=== PATIENT | male | born 1970 | race African-American/Black ===

== ENCOUNTER 2018-07-14 11:26 | Emergency (ER) | payer OTHER ==
--- NOTE | 2018-07-14 11:55 | ER Document Report ---
ED Medical Screen (RME) - General Chief Complaint: Near Syncope Stated Complaint: BLOOD PRESSURE PROBLEM Time Seen by Provider: 07/14/18 11:52 Mode of Arrival: Wheelchair Information source: Patient Notes: 48-year-old man with a history of hypertension, cigarette smoking presents to the emergency room after episode of dizziness, diaphoresis. Patient states he awoke usual state of health and had breakfast at the hotel (he is from [place]). He states that he was at the mall and was out smoking a cigarette and then walked through the mall to a restaurant and on approaching the restaurant, he became acutely dizzy, unstable gait, diffusely diaphoretic as per the patient's . Patient denied any chest pain or shortness of breath. Patient did recently travel from [place]. He denies any calf pain. TRAVEL OUTSIDE OF THE [place] IN LAST 30 DAYS: No - Related Data Allergies/Adverse Reactions: No Known Allergies Allergy (Unverified 07/14/18 11:32) Past Medical History - Social History Frequency of alcohol use: None Drug Abuse: None - Past Medical History Cardiac Medical History: Reports: Hx Hypertension Renal/ Medical History: Denies: Hx Peritoneal Dialysis Physical Exam - Vital signs Vitals: Temp Pulse Resp BP Pulse Ox 98.4 F 52 L 18 156/81 H 98 07/14/18 11:38 07/14/18 11:38 07/14/18 11:38 07/14/18 11:38 07/14/18 11:38 Course - Vital Signs Vital signs: Temp Pulse Resp BP Pulse Ox 98.4 F 52 L 18 156/81 H 98 07/14/18 11:38 07/14/18 11:38 07/14/18 11:38 07/14/18 11:38 07/14/18 11:38
[2018-07-14 12:19] LABS: ABSOLUTE BASOPHILS # (AUTO) 0.1 10^3/uL (0.0-0.2); ABSOLUTE EOSINOPHILS # (AUTO) 0.4 10^3/uL (0.0-0.6); ABSOLUTE LYMPHOCYTES (AUTO) 4.5 10^3/uL (0.5-4.7); ABSOLUTE MONOCYTES (AUTO) 0.7 10^3/uL (0.1-1.4); ABSOLUTE NEUT (AUTO) 2.4 10^3/uL (1.7-8.2); BASOPHILS % (AUTO) 0.7 % (0-2); EOSINOPHILS % (AUTO) 4.8 % (0-6); HEMOGLOBIN 12.6 g/dL (13.5-17.0); LYMPHOCYTES % (AUTO) 56.3 % (13-45); MEAN CORPUSCULAR HEMOGLOBIN 25.4 pg (27.0-33.4); MEAN CORPUSCULAR HGB CONC 32.4 g/dL (32.0-36.0); MEAN CORPUSCULAR VOLUME 78 fl (80-97); MONOCYTES % (AUTO) 8.6 % (3-13); PLATELET COUNT 405 10^3/uL (150-450); RED BLOOD COUNT 4.98 10^6/uL (4.35-5.55); RED CELL DISTRIBUTION WIDTH 13.6 % (11.5-14.0); SEGMENTED NEUTROPHILS % (AUTO) 29.6 % (42-78); TOTAL CELLS COUNTED % (AUTO) 100 %; WHITE BLOOD COUNT 8.1 10^3/uL (4.0-10.5)
[2018-07-14 12:39] LABS: ALANINE AMINOTRANSFERASE 25 U/L (21-72); ALBUMIN 4.6 g/dL (3.5-5.0); ALKALINE PHOSPHATASE 89 U/L (38-126); ANION GAP 12 (5-19); ASPARTATE AMINO TRANSFERASE 26 U/L (17-59); BILIRUBIN,DIRECT 0.3 mg/dL (0.0-0.4); BILIRUBIN,TOTAL 0.4 mg/dL (0.2-1.3); BLOOD UREA NITROGEN 18 mg/dL (7-20); CARBON DIOXIDE 29 mmol/L (22-30); CHLORIDE 105 mmol/L (98-107); CREATINE KINASE 172 U/L (55-170); GLUCOSE 101 mg/dL (75-110); POTASSIUM 4.2 mmol/L (3.6-5.0); SODIUM 145.7 mmol/L (137-145)
--- NOTE | 2018-07-14 12:47 | RADIOLOGY REPORT (SQ) ---
EXAM DESCRIPTION: CHEST SINGLE VIEW COMPLETED DATE/TIME: 07/14/2018 12:29 pm REASON FOR STUDY: near syncope COMPARISON: None. NUMBER OF VIEWS: One view. TECHNIQUE: Single frontal radiographic view of the chest acquired. LIMITATIONS: None. FINDINGS: LUNGS AND PLEURA: No opacities, masses or pneumothorax. No pleural effusion. MEDIASTINUM AND HILAR STRUCTURES: No masses. Contour normal. HEART AND VASCULAR STRUCTURES: Heart normal in size. Normal vasculature. BONES: No acute findings. HARDWARE: None in the chest. OTHER: No other significant finding. IMPRESSION: NO SIGNIFICANT RADIOGRAPHIC FINDING IN THE CHEST. TECHNICAL DOCUMENTATION: JOB ID: [id number] [employer]- All Rights Reserved Reading location - IP/workstation name: [email or web address]
[2018-07-14 12:57] LABS: TROPONIN I < 0.012 ng/mL
--- NOTE | 2018-07-14 16:50 | ER Document Report ---
ED Syncope and Near Syncope - General Chief Complaint: Near Syncope Stated Complaint: BLOOD PRESSURE PROBLEM Time Seen by Provider: 07/14/18 11:52 Mode of Arrival: Wheelchair TRAVEL OUTSIDE OF THE [place] IN LAST 30 DAYS: No - HPI Patient complains to provider of: Nearly fainting - 48-year-old with a past medical history significant for hypertension who presents for evaluation of an episode today of lightheadedness while in the mall. Says he was walking at which time he got somewhat lightheaded, it spontaneously resolved on its own but he is concerned so presented for further evaluation. He denies any chest pain, palpitations, loss of consciousness, abdominal pain diarrhea constipation dysuria or other recent illnesses, he does endorse that he did get sweaty at that time. It got better on its own he has had one episode like this in the past which spontaneously improved without any intervention. - Related Data Allergies/Adverse Reactions: No Known Allergies Allergy (Unverified 07/14/18 11:32) Past Medical History - General Information source: Patient - Social History Smoking Status: Current Every Day Smoker Frequency of alcohol use: None Drug Abuse: None Family History: None Patient has suicidal ideation: No Patient has homicidal ideation: No - Past Medical History Cardiac Medical History: Reports: Hx Hypertension Renal/ Medical History: Denies: Hx Peritoneal Dialysis Review of Systems - Review of Systems -: Yes All other systems reviewed and negative Physical Exam - Vital signs Vitals: Temp Pulse Resp BP Pulse Ox 98.4 F 52 L 18 156/81 H 98 07/14/18 11:38 07/14/18 11:38 07/14/18 11:38 07/14/18 11:38 07/14/18 11:38 - General General appearance: Appears well In distress: None - HEENT Head: Normocephalic Eyes: Normal Conjunctiva: Normal Cornea: Normal Extraocular movements intact: No - Respiratory Respiratory status: No respiratory distress Chest status: Nontender Breath sounds: Normal Chest palpation: Normal - Cardiovascular Rhythm: Regular Heart sounds: Normal auscultation Murmur: No - Abdominal Inspection: Normal Distension: No distension Tenderness: Nontender - Back Back: Normal - Extremities General upper extremity: Normal inspection, Nontender, Normal strength, Normal temperature General lower extremity: Normal inspection, Nontender, Normal strength, Normal temperature - Neurological Neuro grossly intact: Yes Cognition: Normal Orientation: AAOx4 Leydi Coma Scale Eye Opening: Spontaneous [place] Coma Scale Verbal: Oriented [place] Coma Scale Motor: Obeys Commands Leydi Coma Scale Total: 15 Speech: Normal Cranial nerves: Normal Cerebellar coordination: Normal Motor strength normal: LUE, RUE, LLE, RLE - Psychological Associated symptoms: Normal affect - Skin Skin Temperature: Warm Course - Re-evaluation Re-evalutation: 07/14/18 16:49 This 48-year-old man presents for an atypical episode of lightheadedness today. He has had an episode of this in the past when changing positions. This 48 years old, does occasionally smoke cigarettes does have hypertension. Otherwise he has no risk factors for CAD, he has no chest pain or palpitations at this time and no known coronary artery disease. His neurologic examination is benign at this time. heart score 1 for age, one for risk factors- 2 negative troponins, unremarkable EKG, unremarkable chest x-ray. Patient's total heart score is a 3 Patient's had no events on monitor for approximately 4 hours, he has had no active chest pain, exam is without assistance able tolerate p.o. Did speak to him that we do not know the underlying cause of his lightheadedness today though could be related to orthostasis, could be related to vertigo, could be related to cardiac etiology or CVA as we did not investigate that further. He is comfortable currently with follow-up in the outpatient setting. We will continue to monitor symptoms return for worsening. 07/14/18 17:53 - Vital Signs Vital signs: Temp Pulse Resp BP Pulse Ox 98.4 F 52 L 19 134/80 H 96 07/14/18 11:38 07/14/18 11:38 07/14/18 16:01 07/14/18 16:01 07/14/18 16:01 - Laboratory Result Diagrams: 07/14/18 12:07 07/14/18 12:07 Laboratory results interpreted by me: 07/14/18 07/14/18 12:07 12:07 Hgb 12.6 L MCV 78 L MCH 25.4 L Seg Neutrophils % 29.6 L Lymphocytes % 56.3 H Sodium 145.7 H Creatine Kinase 172 H Discharge - Discharge Clinical Impression: Dizziness Condition: Good Disposition: HOME, SELF-CARE Instructions: Dizziness ([facility]) Additional Instructions: You were seen today in the emergency department for your dizziness, he had an evaluation including physical exam and EKG chest x-ray and blood work. No obvious cause was identified for your dizziness, it may be related to vertigo. Continue to monitor yourself for any worsening symptoms, return for any chest pain shortness of breath loss of consciousness. Otherwise call your doctor this week for a follow-up appointment related to today's visit. Forms: Elevated Blood Pressure
[2018-07-14 17:03] VITALS: BP 138/89
--- NOTE | 2018-07-14 17:13 | EKG REPORT ---
SEVERITY:- NORMAL ECG - SINUS RHYTHM : Confirmed by: José Miguel Oro MD 14-Jul-2018 17:13:28
== END 2018-07-14 17:03 | disposition home or self-care (01) ==
LOC: ER 11:26
DX: R42 Dizziness and giddiness (principal); I10 Essential (primary) hypertension; F17.210 Nicotine dependence, cigarettes, uncomplicated
CPT/HCPCS: 36415; 71045; 80053; 82550; 82553; 82962; 84484; 85025; 93005; 93010; 99284